=== PATIENT | female | born 1985 ===

== ENCOUNTER 2021-07-29 10:11 | Emergency (ER) | payer BC | END 2021-07-29 12:07 | disposition home or self-care (01) | LOC: LL.ED 10:11 | DX: T33.812A Superficial frostbite of left ankle, initial encounter (principal); T33.811A Superficial frostbite of right ankle, initial encounter; X31.XXXA Exposure to excessive natural cold, initial encounter | CPT/HCPCS: 99282; 99283 ==

== ENCOUNTER 2021-08-20 16:21 | Emergency (ER) | payer BC ==
[2021-08-20 17:42] LABS: ANION GAP 9.6 meq/L (7-15); CHLORIDE,CL 105 mmol/L (98-107); SODIUM,NA 141 mmol/L (136-145)
[2021-08-20] MEDS ORDERED: Diphtheria,Pertussis(Acell),Tetanus Vaccine 0.5 ML Syringe IM ONE (18:13)
[2021-08-20] MEDS ORDERED: VANCOmycin 1.75 GM/350 ML 1.75 GM in Premix Bag 1 BAG IV ONE (18:14)
[2021-08-20] MEDS ORDERED: Sodium Chloride 0.9% 500 ML IV SCH (18:15)
[2021-08-20] MEDS: Sodium Chloride 0.9% 10 ML Syringe FLUSH PRN ×3 (18:42→19:51)
[2021-08-20] MEDS ORDERED: Ketorolac 15 MG/ML SDV IVPUSH ONE (18:55)
[2021-08-20] MEDS ORDERED: diphenhydrAMINE 50 MG/ML SDV IVPUSH ONE (19:48)
[2021-08-20 21:59] VITALS: BP 99/57; PULSE 66
== END 2021-08-20 21:50 ==
LOC: LL.ED 16:21
DX: T33.822A Superficial frostbite of left foot, initial encounter (principal); T33.821A Superficial frostbite of right foot, initial encounter; L03.116 Cellulitis of left lower limb; Z20.822 Contact with and (suspected) exposure to COVID-19; Z23 Encounter for immunization; X31.XXXA Exposure to excessive natural cold, initial encounter
CPT/HCPCS: 36415; 73610-LT; 80053; 83605; 85025; 87070; 87186; 87205; 87426; 90471; 90715; 96365; 96375; 99284; 99284-25; J1200; J1885; J3370; J3490; J7040

== ENCOUNTER 2023-07-13 05:34 | Emergency (ER) | payer BC ==
[2023-07-13] MEDS ORDERED: Sodium Chloride 0.9% 10 ML Syringe FLUSH PRN (05:44)
[2023-07-13 06:01] LABS: BASOPHILS ABSOLUTE AUTO 0.01 K/uL (0.00-0.20); BASOPHILS PERCENT AUTO 0.1 % (0.0-2.0); EOSINOPHILS ABSOLUTE AUTO 0.08 K/uL (0.00-0.50); EOSINOPHILS PERCENT AUTO 1.1 % (0.0-5.0); HEMATOCRIT 39.1 % (34.0-46.0); HEMOGLOBIN 13.1 g/dL (11.7-15.5); LYMPHOCYTES ABSOLUTE AUTO 1.79 K/uL (0.50-3.50); MEAN CORPUSCULAR HEMOGLOBIN 29.8 pg (28.2-33.3); MEAN CORPUSCULAR HGB CONC 33.5 g/dL (31.7-36.0); MEAN CORPUSCULAR VOLUME 88.9 fL (84.0-98.0); MONOCYTES ABSOLUTE AUTO 0.63 K/uL (0.00-1.00); MONOCYTES PERCENT AUTO 8.8 % (2.0-14.0); NEUTROPHILS ABSOLUTE AUTO 4.66 K/uL (1.40-7.00); PLATELET COUNT,PLT 162 K/uL (150-350); RED CELL DISTRIBUTION WIDTH 12.1 % (11.2-14.1); WHITE BLOOD CELL COUNT,WBC 7.2 K/uL (4.0-10.2)
[2023-07-13 06:38] LABS: CORONAVIRUS COVID-19 NAA NEGATIVE (NEGATIVE); INFLUENZA A NAA NEGATIVE (NEGATIVE); INFLUENZA B NAA NEGATIVE (NEGATIVE); RESPIRATORY SYNCYTIAL VIR NAA NEGATIVE (NEGATIVE)
[2023-07-13 06:40] LABS: ALANINE AMINOTRANSFERASE,ALT 48 U/L (12-78); ALBUMIN 4.1 g/dL (3.4-5.0); ALKALINE PHOSPHATASE 76 IU/L (46-116); ANION GAP 13.1 meq/L (7-15); ASPARTATE AMNIOTRANSFERASE,AST 28 U/L (15-37); BILIRUBIN TOTAL 0.5 mg/dL (0.2-1.0); BLOOD UREA NITROGEN,BUN 9 mg/dL (7-18); CARBON DIOXIDE,CO2 25.3 mmol/L (21.0-32.0); CHLORIDE,CL 102 mmol/L (98-107); CREATININE 0.99 mg/dL (0.51-1.17); ESTIMATED GFR 75 mL/min (>=60); GLUCOSE RANDOM 129 mg/dL (70-99); POTASSIUM,K 3.4 mmol/L (3.5-5.1); PRO B-TYPE NATRIUR PEPT,BNPPRO 30 pg/mL (0-125); PROTEIN TOTAL,TP 8.5 g/dL (6.4-8.2); SODIUM,NA 137 mmol/L (136-145)
[2023-07-13] MEDS: diphenhydrAMINE 50 MG/ML SDV IVPUSH ONE (07:01)
[2023-07-13 07:30] LABS: APPEARANCE,URINE SLIGHTLY CLOUDY; BILIRUBIN,URINE NEGATIVE (NEGATIVE); COLOR,URINE YELLOW; GLUCOSE,URINE NEGATIVE (NEGATIVE); KETONES,URINE NEGATIVE (NEGATIVE); LEUKOCYTE ESTERASE,URINE NEGATIVE (NEGATIVE); NITRITE,URINE NEGATIVE (NEGATIVE); OCCULT BLOOD,URINE NEGATIVE (NEGATIVE); PROTEIN,URINE NEGATIVE (NEGATIVE); UROBILINOGEN,URINE 0.2 E.U./dL (0.2-1.0)
[2023-07-13 07:39] LABS: AMPHETAMINES SCREEN, URINE NEGATIVE (NEGATIVE); BARBITURATE SCREEN,URINE NEGATIVE (NEGATIVE); BENZODIAZEPINES SCREEN,URINE NEGATIVE (NEGATIVE); COCAINE METABOLITES,URINE NEGATIVE (NEGATIVE); EDDP,URINE SCREEN NEGATIVE (NEGATIVE); METHAMPHETAMINES SCREEN, URINE NEGATIVE (NEGATIVE); TCA SCREEN,URINE NEGATIVE (NEGATIVE); THC SCREEN,URINE 50 NG/ML NEGATIVE (NEGATIVE)
[2023-07-13 07:40] LABS: BUPRENORPHINE SCREEN,URINE NEGATIVE (NEGATIVE); OXYCODONE SCREEN,URINE NEGATIVE (NEGATIVE)
[2023-07-13] MEDS ORDERED: Sodium Chloride 0.9% 1,000 ML IV ONE (08:07)
== END 2023-07-13 07:50 | disposition home or self-care (01) ==
LOC: LL.ED 05:34
DX: R07.89 Other chest pain (principal); R42 Dizziness and giddiness
CPT/HCPCS: 0241U; 36415; 71045; 80053; 80305-QW; 81003; 81025; 82550; 82947; 83605; 83735; 83880; 84484; 85025; 85379; 93005; 96374; 99285-25; J1200